=== PATIENT | male | born 1980 | race Caucasian/White ===

== ENCOUNTER 2017-12-02 09:19 | Day surgery (SDC) | payer BC ==
[2017-12-02 09:55] LABS: ADD MAN DIFF? NO
[2017-12-02 10:02] LABS: BASOPHILS % 0.5 % (0.0-2.0); EOSINOPHILS # 0.1 10^3/ul (0.0-0.5); EOSINOPHILS % 1.3 % (0.0-7.0); HEMOGLOBIN 12.7 g/dl (14.0-18.0); LYMPHOCYTES # 1.2 10^3/ul (0.8-2.9); LYMPHOCYTES % 31.7 % (15.0-51.0); MEAN CORPUSCULAR HEMOGLOBIN 30.5 pg (29.0-33.0); MEAN CORPUSCULAR HGB CONC 34.3 g/dl (32.0-37.0); MEAN CORPUSCULAR VOLUME 88.7 fl (82.0-101.0); MEAN PLATELET VOLUME 9.3 fl (7.4-10.4); MONOCYTE # 0.4 10^3/ul (0.3-0.9); MONOCYTES % 9.6 % (0.0-11.0); NEUTROPHIL # 2.2 10^3/ul (1.6-7.5); NEUTROPHILS % 56.6 % (39.0-77.0); PLATELET COUNT 282 10^3/UL (140-415); RED BLOOD COUNT 4.17 10^6/ul (4.70-6.10); RED CELL DISTRIBUTION WIDTH 12.6 % (11.5-14.5)
[2017-12-02 10:02] LABS: WHITE BLOOD COUNT 3.9 10^3/ul (4.8-10.8)
[2017-12-02 10:18] LABS: ALANINE AMINOTRANSFERASE 28 IU/L (13-69); ALBUMIN 4.9 g/dl (3.3-4.9); ALBUMIN/GLOBULIN RATIO 2.04; ALKALINE PHOSPHATASE 29 IU/L (42-121); ANION GAP 11 (8-16); ASPARTATE AMINO TRANSFERASE 24 IU/L (15-46); BILIRUBIN,INDIRECT 0.7 mg/dl (0-1.1); BILIRUBIN,TOTAL 0.7 mg/dl (0.2-1.3); BLOOD UREA NITROGEN 14 mg/dl (7-20); CALCIUM 9.4 mg/dl (8.4-10.2); CARBON DIOXIDE 26 mmol/L (21-31); CHLORIDE 110 mmol/L (97-110); CREATININE 0.69 mg/dl (0.61-1.24); GLUCOSE 96 mg/dl (70-220); HOLD TRANSMISSIONS 1; POTASSIUM 4.1 mmol/L (3.5-5.1); SODIUM 143 mmol/L (135-144); TOTAL PROTEIN 7.3 g/dl (6.1-8.1)
[2017-12-02] MEDS: SOD CHLORIDE 0.9% 1,000 ML IV (10:24)
[2017-12-02 10:27] LABS: INR 0.92; PROTIME 12.4 Sec (11.9-14.9)
[2017-12-02 10:28] LABS: PARTIAL THROMBOPLASTIN TIME 26.3 Sec (25.0-35.0)
[2017-12-02] MEDS: CEFAZOLIN 2 GM/50 ML (PMX) 50 ML IVPB (10:30)
[2017-12-02] MEDS ORDERED: CEFAZOLIN 1 GM INJ (11:00)
[2017-12-02] MEDS ORDERED: PROPOFOL 20 ML (11:00)
[2017-12-02] MEDS ORDERED: LIDOCAINE 2% (SDV) 5 ML INJ (11:00)
[2017-12-02] MEDS: LIDOCAINE 1%/EPI 30 ML INJ (11:42)
[2017-12-02] MEDS ORDERED: FENTAnyl 50 MCG/ML VIAL (12:15)
[2017-12-02] MEDS: FENTAnyl 50 MCG/ML VIAL IV (12:22)
[2017-12-02] MEDS ORDERED: MIDAZOLAM 1 MG/ML 2 ML INJ IV (12:30)
[2017-12-02] MEDS ORDERED: FENTAnyl 50 MCG/ML VIAL IV ×2 (12:30)
[2017-12-02] MEDS ORDERED: OXYCODONE/ACETAMINOPHEN (5/325) TAB PO (12:30)
[2017-12-02] MEDS ORDERED: MEPERIDINE 25 MG INJ IV (12:30)
[2017-12-02] MEDS ORDERED: DIPHENHYDRAMINE 50 MG INJ IV (12:30)
[2017-12-02] MEDS ORDERED: ONDANSETRON 4 MG INJ IV (12:30)
[2017-12-02] MEDS ORDERED: METOCLOPRAMIDE 10 MG INJ IV (12:30)
[2017-12-02] MEDS: OXYCODONE/ACETAMINOPHEN (5/325) TAB PO (12:56)
== END 2017-12-02 13:42 | disposition home or self-care (01) ==
LOC: SDS 09:19
DX: D23.39 Other benign neoplasm of skin of other parts of face (principal)
CPT/HCPCS: 11442; 80053; 85025; 85610; 85730; 88307